=== PATIENT | female | born 1960 | race Caucasian/White ===

== ENCOUNTER 2018-11-28 11:55 | Emergency (ER) | payer OTHER ==
[2018-11-28 12:10] VITALS: BP 123/81
[2018-11-28] MEDS ORDERED: Albuterol/Ipratropium NEB.SOL* Albuterol 2.5 MG/Ipratropium 0.5 MG 3 ML INH ONE (12:25)
--- NOTE | 2018-11-28 12:27 | UC ---
Respiratory Complaint HPI - HPI Summary HPI Summary: Patient was treaed for bronchitis with a Z pack, medrol dose pack and pro air inhaler, she is a smoker, has had little relief from the treatment. is SOB on exertion and hurts to take a deep breath - History of Current Complaint Chief Complaint: UCRespiratory Stated Complaint: COUGH Time Seen by Provider: 11/28/18 12:15 Hx Obtained From: Patient ?: No Onset/Duration: Gradual Onset, Lasting Weeks Timing: Constant Severity Initially: Moderate Severity Currently: Moderate Pain Intensity: 0 Character: Cough: Productive Aggravating Factors: Exertion, Deep Breaths Alleviating Factors: Nothing Associated Signs And Symptoms: Positive: Dyspnea, Wheezing - Allergies/Home Medications Allergies/Adverse Reactions: Allergies Allergy/AdvReac Type Severity Reaction Status Date / Time No Known Allergies Allergy Verified 04/25/16 16:33 Home Medications: Home Medications Albuterol inh POWDER (NF) [Proair Respiclick] 1 puff INH Q4HR PRN 11/28/18 [ History Confirmed 11/28/18] NIFEdipine ER TAB* [Procardia Xl TAB*] 90 mg PO DAILY 11/28/18 [History Confirmed 11/28/18] PMH/Surg Hx/FS Hx/Imm Hx Previously Healthy: Yes - Surgical History Surgical History: Yes Surgery Procedure, Year, and Place: eye surgery as a child - Family History Known Family History: Positive: Hypertension - Social History Alcohol Use: Occasionally Substance Use Type: None Smoking Status (MU): Heavy Every Day Tobacco Smoker Type: Cigarettes Amount Used/How Often: 1/4 PPD Review of Systems All Other Systems Reviewed And Are Negative: Yes Constitutional: Positive: Chills, Fatigue Skin: Positive: Negative Eyes: Positive: Negative ENT: Positive: Negative Respiratory: Positive: Shortness Of Breath, Cough Cardiovascular: Positive: Negative Gastrointestinal: Positive: Negative Genitourinary: Positive: Negative Motor: Positive: Negative Neurovascular: Positive: Negative Musculoskeletal: Positive: Negative Neurological: Positive: Headache Psychological: Positive: Negative Is Patient Immunocompromised?: No Physical Exam Triage Information Reviewed: Yes Appearance: Well-Nourished, Ill-Appearing, Pain Distress Vital Signs: Initial Vital Signs Temp 99.6 F 11/28/18 12:06 Pulse 86 11/28/18 12:06 Resp 19 11/28/18 12:06 BP 123/81 11/28/18 12:06 Pulse Ox 95 11/28/18 12:06 Vital Signs Reviewed: Yes Eye Exam: Normal ENT: Positive: Pharynx normal, TMs normal Dental Exam: Normal Neck exam: Normal Neck: Positive: Supple, Nontender, No Lymphadenopathy Respiratory: Positive: Respiratory distress - mild, Decreased breath sounds, Rhonchi, Stridor, Wheezing, Inspiration Cardiovascular: Positive: RRR, No Murmur, Pulses Normal Bowel Sounds: Positive: Present Musculoskeletal Exam: Normal Neurological Exam: Normal Psychological Exam: Normal Skin Exam: Normal UC Diagnostic Evaluation - Laboratory O2 Sat by Pulse Oximetry: 95 Respiratory Course/Dx - Course Course Of Treatment: hx obtained, exam performed ,meds reviewed, rapid flu obtained, chest xray completed, and neb treatment given. LAMA prescribed for her COPD and cough medicine given. note for work also given, her flu test was negative. CHEst xray showed emphysema but not acute disease. - Differential Dx/Diagnosis Differential Diagnosis/HQI/PQRI: Asthma, Bronchitis, Exacerbation Of COPD, Lower Resp Infection Provider Diagnosis: Emphysema lung, SOB (shortness of breath), Tobacco abuse Discharge - Sign-Out/Discharge Documenting (check all that apply): Patient Departure All imaging exams completed and their final reports reviewed: No Studies - Discharge Plan Condition: Stable Disposition: HOME Prescriptions: guaiFENesin/CODIEN 100MG-10MG* [Robitussin AC 100Mg-10Mg*] 5 ml PO Q4H PRN #100 ml MDD 30 ML PRN Reason: Cough Spiriva Inhaler DEVICE* [Tiotropium Inhaler DEVICE*] 1.25 mcg INH DAILY #1 device Patient Education Materials: Emphysema (ED) Referrals: Brittaney Schroeder PA [Primary Care Provider] - Additional Instructions: 1. take the medication as prescribed. 2. Get plenty of rest and increase fluids 3. Stop smoking, this is a greate time to cut back or stop all together. 4. Follow up with your PRimary physician if not getting better. - Billing Disposition and Condition Condition: STABLE Disposition: Home
[2018-11-28 12:58] LABS: Influenza A Molecular NEGATIVE (Negative); Influenza B Molecular NEGATIVE (Negative)
== END 2018-11-28 13:29 | disposition home or self-care (01) ==
LOC: UCCORT 11:55
DX: J43.9 Emphysema, unspecified (principal); F17.210 Nicotine dependence, cigarettes, uncomplicated
CPT/HCPCS: 71046; 99212; A9270-GY; G0463

== ENCOUNTER 2019-08-19 07:11 | Emergency (ER) | payer OTHER ==
--- OUTSIDE RECORDS SUMMARY | 2019-08-19 07:23 | XMS REPORT | Continuity of Care Document ---
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 Onset: 04/18/2014 Social History Type Date Description Comments Sex Unknown Tobacco Use Reviewed: 11/23/18 current cigarette 1/2 to 1 PPD. smoker Started age 18. Over 15 yrs has smokes 1/2 PPD as of 04/2018 pt has about 32.5 year pack hx. 11/23/18 smoking 1/4 ppd Cigarette Use Quit - Age 48 restarted Smoking Status Reviewed: 05/27/19 current cigarette 1/2 to 1 PPD. smoker Started age 18. Over 15 yrs has smokes 1/2 PPD as of 04/2018 pt has about 32.5 year pack hx. 11/23/18 smoking 1/4 ppd ETOH Use Denies alcohol use Recreational Drug Use Never Used Drugs Tobacco Use Start: Unknown Light tobacco smoker (10 or fewer cigarettes/day) Allergies, Adverse Reactions, Alerts Description No Known Drug Allergies Medications Active Medications SIG Qnty Indications Ordering Date Provider Hydrochlorothiazide 1 tab by mouth 90tabs I10 Silcoff, 05/27/2019 12.5mg when you get up Deshaun Fletcher Tablets for the day Albuterol Sulfate use 3ml or 1 75units Julia18.9 Johanny, 05/06/2019 1.25mg/3ML vial up to four Deshaun Fletcher Nebulizer times a day as directed with nebulizer Nebulizer Tubing With Med Use with the 1units J43.2 Johanny, 05/06/2019 Cup nebulizer Deshaun Fletcher Nebulizer Machine Use 4 times a 1units Julia43.2 Johanny, 05/06/2019 day as needed Deshaun Fletcher for COPD breathing issues R06.2 Julia18.9 Oyster Shell Calcium take 2 tablets (1000 60tabs Chance Orlando, 2018 MG) by mouth once M.D. 500mg Tablets daily For Osteopenia Vitamin D3 1 by mouth every day 90tabs Chance Orlando, 12/17/2018 2000Unit w/the fattest meal M.D. Tablets Spiriva Respimat inhale 2 puffs by 12gm Chance Orlando, 11/28/2018 mouth once daily M.D. 1.25mcg/Act Aerosol Proair HFA 1-2 puffs four times a 8.500gm Chance Orlando, 08/13/2018 day as needed M.D. 108(90Base) mcg/Act Aerosol Neti Pot Kit Sinus use as directed 1units Edi Goel, 08/13/2018 Wash/Clear View D.OHailey Kettle 2300-700mg Kit Prolia 1 milliliters sub cue 1ml M81.0 Chance Orlando, 06/24/2018 60mg/ml every 6 months for M.D. Solution osteoporosis Nifedipine ER one by mouth daily 90tabs Chance Orlando, 08/25/2016 90mg M.D. Tablets ER 24HR History Medications Prednisone 1 bid x 5 day, 15tabs Chance Smalls, 05/06/2019 - 20mg Tablets then reduce to 1 M.D. 05/23/2019 qam x 5 d for pneumonia Clarithromycin 1 twice a day x 20tabs Chance Smalls, 05/06/2019 - 500mg 10 days for M.D. 2019 Tablets sinustis and bronchitis/pneumo feliberto Medications Administered in Office Medication SIG Qnty Indications Ordering Provider Date SC/Im Injections Nurse's Schedule 03/02/2019 Injection SC/Im Injections Nurse's Schedule 07/26/2018 Injection SC/Im Injections Nurse's Schedule 07/19/2014 Injection SC/Im Injections Edi Goel D.O. 04/18/2014 Injection SC/Im Injections Nurse's Schedule 01/17/2014 Injection SC/Im Injections Nurse's Schedule 10/19/2013 Injection SC/Im Injections Nurse's Schedule 07/21/2013 Injection SC/Im Injections Nurse's Schedule 04/15/2013 Injection SC/Im Injections Nurse's Schedule 01/14/2013 Injection SC/Im Injections Nurse's Schedule 10/15/2012 Injection SC/Im Injections Nurse's Schedule 07/16/2012 Injection SC/Im Injections Nurse's Schedule 04/16/2012 Injection SC/Im Injections Nurse's Schedule 01/12/2012 Injection SC/Im Injections Nurse's Schedule 10/10/2011 Injection SC/Im Injections Nurse's Schedule 07/11/2011 Injection SC/Im Injections Nurse's Schedule 04/11/2011 Injection SC/Im Injections Nurse's Schedule 01/13/2011 Injection SC/Im Injections Nurse's Schedule 10/04/2010 Injection SC/Im Injections Nurse's Schedule 07/05/2010 Injection SC/Im Injections Nurse's Schedule 01/09/2010 Injection SC/Im Injections Nurse's Schedule 10/05/2009 Injection SC/Im Injections Nurse's Schedule 07/05/2009 Injection SC/Im Injections Nurse's Schedule 04/04/2009 Injection SC/Im Injections Flori Chavez MD 01/04/2009 Injection code deleted 11/16/08 - Nurse's Schedule 10/06/2008 Terapueutic Injection;Sub/Intra Injection code deleted 11/16/08 - Nurse's Schedule 04/14/2008 Terapueutic Injection;Sub/Intra Injection Immunizations CPT Code Status Date Vaccine Lot # [id number] Given 12/17/2018 Influenza Vaccine Quadrivalent Preser/Antibiotic [id number] Free Im Use 40755 Given 09/07/2017 Influenza Virus Vaccine, Quadrivalent, Split, [id number] Preservative Free [id number] Given 08/08/2014 Adacel or Boostrix, TDaP [id number] [id number] Given 03/13/2011 Pneumococcal Immunization [id number] Vital Signs Date Vital Result Comment 05/27/2019 8:39am BP Systolic 136 mmHg BP Diastolic 80 mmHg Height 61 inches 5'1" Weight 116.00 lb BMI (Body Mass Index) 21.9 kg/m2 05/09/2019 9:06am BP Systolic 122 mmHg BP Diastolic 70 mmHg Heart Rate 88 /min 87 O2 % BldC Oximetry 95 % 97% Body Temperature 97.8 F Weight 117.00 lb Results Test Date Facility Test Result H/L Range Note Ua Inhouse 05/27/2019 In House [facility] Glucose - 1 Ua Bilirubin - Ua Ketones - Ua Specific Kirk 1.010 Ua Blood - Ua PH 6.0 Ua Protein tr Ua Urobilinogen - Ua Nitrite - Ua Leukocytes - Laboratory test 05/23/2019 [facility] Magnesium 2.1 mg/dL Normal 1.9- 2.7 finding [phone] Basic Metabolic Panel 05/23/2019 [facility] Sodium 139 mmol/L Normal 135-145 [phone] Potassium 4.2 mmol/L Normal 3.5-5.0 Chloride 102 mmol/L Normal 101-111 Co2 Carbon Dioxide 30 mmol/L Normal 22-32 Anion Gap 7 mmol/L Normal 2-11 Glucose 81 mg/dL Normal 70-100 Blood Urea Nitrogen 19 mg/dL Normal 6-24 Creatinine 0.71 mg/dL Normal 0.51-0.95 BUN/Creatinine Ratio 26.8 High 8-20 Calcium 9.5 mg/dL Normal 8.6-10.3 Egfr Non- 84.6 >60 Egfr 102.3 >60 2 Laboratory test 05/23/2019 [facility] Phosphorus 3.3 mg/dL Normal 2.5 -5.0 finding [phone] 1 void, clear, yellow 2 Because ethnic data is not always readily available, this report includes an eGFR for both -Americans and non- Americans. The National Kidney Disease Education Program (NKDEP) does not endorse the use of the MDRD equation for patients that are not between the ages of 18 and 70, are , have extremes of body size, muscle mass, or nutritional status, or are non- or non-. According to the National Kidney Foundation, irrespective of diagnosis, the stage of the disease is based on the level of kidney function: Stage Description GFR(mL/min/1.73 m(2)) 1 Kidney damage with normal or decreased GFR 90 2 Kidney damage with mild decrease in GFR 60-89 3 Moderate decrease in GFR 30-59 4 Severe decrease in GFR 15-29 5 Kidney failure <15 (or dialysis) Procedures Date Code Description Status 06/21/2019 93022 Dexa Bone Density Study One Or More Sites Axial Completed Skeleton 06/20/2019 03512870 Mammogram Completed 05/06/2019 72319 Inhalation Therapy Completed 05/06/2019 49152 X-Ray Chest 2 V Completed 03/02/2019 70556 SC/Im Injections Completed Medical Devices Description No Information Available Encounters Type Date Location Provider Dx Diagnosis Office Visit 06/21/2019 Main Office Brittaney Schroeder M81.0 Age-related 10:40a P.A. osteoporosis w/o current pathological fracture Office Visit 05/27/2019 Main Office Brittaney Schroeder I10 Essential (primary) 8:00a P.A. hypertension F17.210 Nicotine dependence, cigarettes, uncomplicated R60.0 Localized edema Z00.00 Encntr for general adult medical exam w/o abnormal findings Z00.01 Encounter for general adult medical exam w abnormal findings Z68.21 Body mass index (BMI) 21.0-21.9, adult Office Visit 05/09/2019 9:00a Main Office Brittaney Schroeder J18.9 Pneumonia, P.A. unspecified organism R06.2 Wheezing R05 Cough Office Visit 05/06/2019 9:20a Main Office Julia Benton18.9 Pneumonia, P.A. unspecified organism R06.2 Wheezing R05 Cough F17.210 Nicotine dependence, cigarettes, uncomplicated J01.00 Acute maxillary sinusitis, unspecified I10 Essential (primary) hypertension J43.2 Centrilobular emphysema Assessments Date Code Description Provider 06/21/2019 M81.0 Age-related osteoporosis without current Brittaney Schroeder, P.A. pathological fracture 05/27/2019 I10 Essential (primary) hypertension Brittaney Schroeder, P.A. 05/27/2019 F17.210 Nicotine dependence, cigarettes, uncomplicated Brittaney Schroeder, P.A. 05/27/2019 R60.0 Localized edema Brittaney Schroeder, P.A. 05/27/2019 Z00.00 Encounter for general adult medical Brittaney Vinemont, P.A. examination without abno 05/27/2019 Z00.01 Encounter for general adult medical Brittaney Vinemont, P.A. examination with abnormal findings 05/27/2019 Z68.21 Body mass index (BMI) 21.0-21.9, adult Brittaney Vinemont, P.A. 05/09/2019 J18.9 Pneumonia, unspecified organism Brittaney Vinemont, P.A. 05/09/2019 R06.2 Wheezing Brittaney Vinemont, P.A. 05/09/2019 R05 Cough Brittaney Vinemont, P.A. 05/06/2019 J18.9 Pneumonia, unspecified organism Brittaney Vinemont, P.A. 05/06/2019 R06.2 Wheezing Brittaney Vinemont, P.A. 05/06/2019 R05 Cough Brittaney Vinemont, P.A. 05/06/2019 F17.210 Nicotine dependence, cigarettes, uncomplicated Brittaney Vinemont, P.A. 05/06/2019 J01.00 Acute maxillary sinusitis, unspecified Brittaney Vinemont, P.A. 05/06/2019 I10 Essential (primary) hypertension Brittaney Vinemont, P.A. 05/06/2019 J43.2 Centrilobular emphysema Brittaney Vinemont, P.A. 03/02/2019 M81.0 Age-related osteoporosis without current Nurse's Schedule pathological fractu Plan of Treatment Future Appointment(s):05/29/2020 8:00 am - Brittaney Schroeder, P.A. at Main [id number] 9:00 am - Nurse's Schedule at Main [id number]/30/2019 8:40 am - Brittaney Schroeder, P.A. at Main [id number]/27/2019 - Brittaney Vinemont, P.A.I10 Essential (primary) hypertensionNew Medication:Hydrochlorothiazide 12.5 mg - 1 tab by mouth when you get up for the dayComments:pt advised to report cp, change in angina , sob etc Continue same meds with no change. Comply withdiet and exercise. Lose weight and watch salt in diet.Follow up:F/u 08/30-09/06 for Prolia and ankle edema/BP wuvoieqG28.210 Nicotine dependence, cigarettes, uncomplicatedFollow up:any time you want to quit try calling the [place] Quitline - 1 866 [place] Quits and they can get you oqcfcrfT08.0 Localized edemaFollow up:Must get support stockings Elevated legs often Write the alphabet with you footZ00.00 Encounter for general adult medical examination without abnoZ00.01 Encounter for general adult medical examination with abnormal wbrfinsyI26.21 Body mass index (BMI) 21.0-21.9, adult Functional Status Description No Information Available Mental Status Description No Information Available Referrals Description No Information Available
[2019-08-19 07:32] VITALS: BP 139/80
--- NOTE | 2019-08-19 08:01 | UC ---
Respiratory Complaint HPI - HPI Summary HPI Summary: 59 yo smoker with COPD, treated in the ER 2 weeks ago for "almost pneumonia" on chest xray with azithromycin and steroids, uncertain of duration or dose of prednisone. Continues to cough, and states that she is congested and out of breath. At her baseline trearment for COPD, she has no dyspnea. No chest pain or palpitations, does have headache. - History of Current Complaint Chief Complaint: UCGeneralIllness Stated Complaint: COUGH,CONGESTION,CONDON Time Seen by Provider: 08/19/19 07:50 Hx Obtained From: Patient Onset/Duration: Gradual Onset, Lasting Weeks Timing: Constant Severity Initially: Moderate Severity Currently: Moderate Pain Intensity: 4 Character: Cough: Productive Aggravating Factors: Exertion, Recumbent Position Alleviating Factors: Bronchodilator Associated Signs And Symptoms: Positive: Dyspnea, Fever, Chills, Nasal Congestion, Sinus Discomfort - Risk Factors Pulmonary Embolism Risk Factors: Smoking Cardiac Risk Factors: Hypertension, Smoking Pseudomonas Risk Factors: Negative Tuberculosis Risk Factors: Negative - Allergies/Home Medications Allergies/Adverse Reactions: Allergies Allergy/AdvReac Type Severity Reaction Status Date / Time No Known Allergies Allergy Verified 08/19/19 07:32 Home Medications: Home Medications Denosumab [Prolia] 1 admin IM SEE INSTRUCTIONS 08/19/19 [History Confirmed 08/19] Ibuprofen TAB* [Advil TAB*] 1 tab PO ONCE 08/19/19 [History Confirmed 08/19/19] hydroCHLOROthiazide [Hydrochlorothiazide] 1 tab PO DAILY 08/19/19 [History Confirmed 08/19/19] PMH/Surg Hx/FS Hx/Imm Hx - Additional Past Medical History Additional PMH: osteoporosis Cardiovascular History: Hypertension Respiratory History: COPD - Surgical History Surgical History: Yes Surgery Procedure, Year, and Place: eye surgery as a child - Family History Known Family History: Positive: Cardiac Disease - father of [place], Hypertension, Other - mother of [place] breast - Social History Occupation: Employed Full-time Lives: Alone Alcohol Use: Occasionally Substance Use Type: None Smoking Status (MU): Heavy Every Day Tobacco Smoker Type: Cigarettes Amount Used/How Often: 1/2 PPD Review of Systems All Other Systems Reviewed And Are Negative: Yes Constitutional: Positive: Fever, Fatigue Skin: Positive: Negative Eyes: Positive: Negative ENT: Positive: Ear Ache, Sinus Congestion Respiratory: Positive: Shortness Of Breath, Cough Cardiovascular: Negative: Chest Pain Gastrointestinal: Positive: Negative Genitourinary: Positive: Negative Motor: Positive: Negative Neurological: Positive: Headache Is Patient Immunocompromised?: No Physical Exam Triage Information Reviewed: Yes Appearance: Ill-Appearing - looks chronically ill and unwell Vital Signs: Initial Vital Signs Temp 97.6 F 08/19/19 07:28 Pulse 74 08/19/19 07:28 Resp 16 08/19/19 07:28 BP 139/80 08/19/19 07:28 Pulse Ox 98 08/19/19 07:28 Eyes: Positive: Conjunctiva Clear ENT: Positive: Pharyngeal erythema, TMs normal Respiratory: Positive: Decreased breath sounds, Rhonchi - both lung rivero, Wheezing - expiratory Cardiovascular Exam: Normal Musculoskeletal Exam: Normal Neurological Exam: Normal Psychological Exam: Normal Skin Exam: Normal Respiratory Course/Dx - Course Course Of Treatment: doxy and prednisone, add symbicort, mucinex for expectorant. - Differential Dx/Diagnosis Differential Diagnosis/HQI/PQRI: Asthma, Exacerbation Of COPD, Sinusitis Provider Diagnosis: COPD exacerbation Discharge ED - Sign-Out/Discharge Documenting (check all that apply): Patient Departure All imaging exams completed and their final reports reviewed: No Studies - Discharge Plan Condition: Stable Disposition: HOME Prescriptions: Budesonide/Formote 160/4.5(NF) [Symbicort 160/4.5 (NF)] 2 puff INH BID #1 mdi DOXYcycline CAP(*) [DOXYcycline 100MG CAP(*)] 100 mg PO BID #20 cap predniSONE [Prednisone 20 MG TAB] 40 mg PO DAILY #10 tablet Patient Education Materials: COPD (Chronic Obstructive Pulmonary Disease) (ED) Referrals: Brittaney Schroeder PA [Primary Care Provider] - Additional Instructions: Begin doxycycline for treatment of infective component of COPD. Add symbicort as an inhaler to decrease inflammation. This also has a long acting bronchodilator. Rinse mouth after use to prevent thrush. Use over the counter mucinex 600mg twice daily as an expectorant. - Billing Disposition and Condition Condition: STABLE Disposition: Home
== END 2019-08-19 08:36 | disposition home or self-care (01) ==
LOC: UCCORT 07:11
DX: J44.1 Chronic obstructive pulmonary disease with (acute) exacerbation (principal); I10 Essential (primary) hypertension; M81.0 Age-related osteoporosis without current pathological fracture; Z79.899 Other long term (current) drug therapy; F17.210 Nicotine dependence, cigarettes, uncomplicated
CPT/HCPCS: 99212; G0463